=== PATIENT | female | born 1945 | race Caucasian/White ===

== ENCOUNTER 2017-05-06 08:55 | Day surgery (SDC) | payer MEDICARE ==
[~2017-05-06] VITALS: Ht 167.6 cm; Wt 62.1 kg
[~2017-05-06 08:55] MED LIST: ALPHA LIPOIC A300 MG PO; AMOXICILLIN500 MG PO; B COMPLEX1 EACH PO; CIPRO500 MG PO; CITRUCEL479 GM PO; CLOBETASOL PROP15 G1 TOP; FISH OIL OMEGA1 EAC2 PO; FLAGYL500 MG PO; GLUCOSAMINE &1 EAC1 PO; LEVOTHYROXINE50 MCG PO; MAGNESIUM250 M1 PO; MULTIVITAMINS1 EAC7 PO; NAPROXEN500 MG PO; NORCO 5-325 TA1 EACH PO; PROTONIX40 MG PO; RANITIDINE HCL150 MG PO; TURMERIC500 M2 PO; ULTRAM50 MG PO; ZYRTEC10 MG PO
[2017-05-06] MEDS ORDERED: ADVIL200 MG PO (09:19)
[2017-05-06] MEDS ORDERED: EXTRA STRENGTH500 MG PO (09:19)
--- NOTE | 2017-05-11 07:20 | OR ---
[facility] [address] [place], [place] [address] Signed DATE OF OPERATION: 05/06/2017 SURGEON: Bora Cassidy MD PREOPERATIVE DIAGNOSIS: Painful right hip. POSTOPERATIVE DIAGNOSIS: Painful right hip. PROCEDURE: Aspiration/injection to right hip. ANESTHESIA: IV sedation with some local. WHAT WAS DONE: The patient was taken to the operating room. After she was gently sedated, the right groin area was prepped, and draped in a routine sterile fashion. After positioning the fluoroscopy unit over the hip and identifying the hip area, we raised a Xylocaine wheal lateral to the neurovascular bundle. Then under fluoroscopy control, we directed a 19-gauge spinal needle into the hip joint. There was a rather significant pump as it went through the hip capsule. We then attempted to aspirate the hip joint, but there was no fluid. We did irrigate it with a small amount of non-bacteriostatic normal saline, and again recovered only a little bit of fluid. There was nothing unusual in its appearance. We therefore injected the hip with 8 mL of 1% plain Xylocaine and 2 mL of Depo-Medrol. The needle was withdrawn, a Band-Aid applied. She was awakened and taken to the recovery room, where she arrived in stable condition. Counts were correct and antibiotic protocols were followed. Bora Cassidy MD Electronically Signed By: BORA CASSIDY MD 05/11/17 0720 PATIENT NAME: SHYAM ASIF OPERATIVE REPORT DATE OF : 41 PHYSICIAN: BORA CASSIDY MD REPORT #: [id number] REPORT IS CONFIDENTIAL AND NOT TO BE RELEASED WITHOUT AUTHORIZATION [address] [place], [place] [address] Signed WFB/MODL /[id number] Electronically Signed By: BORA CASSIDY MD 05/11/17 0720 PATIENT NAME: SHYAM ASIF OPERATIVE REPORT DATE OF : 41 PHYSICIAN: BORA CASSIDY MD REPORT #: [id number] REPORT IS CONFIDENTIAL AND NOT TO BE RELEASED WITHOUT AUTHORIZATION
== END 2017-05-06 11:55 | disposition home or self-care (01) ==
LOC: OPS 08:55 → DS 08:55 → OPS 11:00
PROVIDERS: Orthopaedic Surgery
PROC: 3E0U33Z Introduction of Anti-inflammatory into Joints, Percutaneous Approach (ICD-10-PCS; 2017-05-06)
PROC: 3E0U3BZ Introduction of Anesthetic Agent into Joints, Percutaneous Approach (ICD-10-PCS; principal; 2017-05-06 11:00)
DX: G89.29 Other chronic pain (principal); M25.551 Pain in right hip; E03.9 Hypothyroidism, unspecified; Z98.1 Arthrodesis status
CPT/HCPCS: 73501; 99156; 99157; J2704; J3301; J7120

== ENCOUNTER 2017-11-15 19:09 | Emergency (ER) | payer MEDICARE ==
[~2017-11-15] VITALS: Ht 167.6 cm; Wt 62.1 kg
[~2017-11-15 19:09] MED LIST changes: +ADVIL200 MG PO; +EXTRA STRENGTH500 MG PO
[2017-11-15] MEDS ORDERED: OXYCODONE HCL5 MG PO (19:33)
[2017-11-15] MEDS ORDERED: ULTRAM50 MG PO (19:34)
[2017-11-15] MEDS ORDERED: MELOXICAM15 MG PO (19:34)
== END 2017-11-15 20:56 | disposition home or self-care (01) ==
LOC: ED 19:09
DX: G89.18 Other acute postprocedural pain (principal); M79.604 Pain in right leg; M79.89 Other specified soft tissue disorders; Z96.641 Presence of right artificial hip joint; Z88.8 Allergy status to other drugs, medicaments and biological substances; Z88.1 Allergy status to other antibiotic agents; Z88.2 Allergy status to sulfonamides; Z79.899 Other long term (current) drug therapy
CPT/HCPCS: 80053; 85025; 93971; 99284

== ENCOUNTER 2019-09-19 07:05 | Day surgery (SDC) | payer MEDICARE ==
[~2019-09-19] VITALS: Ht 167.6 cm; Wt 63.5 kg
[~2019-09-19 07:05] MED LIST changes: +DOCUPRENE100 MG PO; +IBUPROFEN600 MG PO; +LIPITOR20 MG PO; +MELOXICAM15 MG PO; +METAMUCIL FIBE3.4 GM PO; +OXYCODON-ACETA1 EAC2 PO; +OXYCODONE HCL5 MG PO; +PEPCID20 MG PO; +PROBIOTIC1 EAC1 PO; +SAW PALMETTO160 MG PO; +TURMERIC 500 M1 EACH PO; +TYLENOL EXTRA500 MG PO
--- NOTE | 2019-09-19 09:39 | NUR ---
0800) 0 NEEDS ADVISED OF WAIT TIME. 0905) UP TO BATHROOM WITH STANDBY ASSIST
--- NOTE | 2019-09-19 11:05 | NUR ---
09/19/19 1105 [place] 1100 PT ARRIVED TO PACU ON 2L VIA NC, VSS. PT REACTIVE TO VERBAL STIMULI AND PT DENIES PAIN AND NAUSEA, PT EYES REMAIN CLOSED AND EASILY FALLS BACK TO SLEEP.
[2019-09-19] MEDS ORDERED: HYDROMORPHONE HC4 MG PO (11:07)
[2019-09-19] MEDS ORDERED: IBUPROFEN600 MG PO (11:07)
--- NOTE | 2019-09-21 17:13 | PATH ---
[facility] [address] [place], [place] [address] Signed SPECIMEN(S): A LEFT AXILLARY CONTENTS SPECIMEN SOURCE: A. LEFT AXILLARY CONTENTS CLINICAL HISTORY: Left neoplasm of breast regional lymph node staging CA+ N1: metastasis to movable ipsilateral level I, II axillary lymph node(s) / (Hx of sentinel lymph node biopsy) FINAL PATHOLOGIC DIAGNOSIS: Axillary contents, left, dissection: - Nine lymph nodes with no evidence of malignancy. - Fibroadipose tissue with postsurgical site reparative change and chronic inflammation. NAL:cml:C2NR MICROSCOPIC EXAMINATION: Histologic sections of all submitted blocks are examined by light microscopy. These findings, together with the gross examination, support the pathologic diagnosis. GROSS DESCRIPTION: The specimen, labeled " EC, A" and "left axillary contents"," is received in formalin and consists of a 9 x 7 x 5 cm yellow lobulated portion of adipose tissue. The external surface is marked with blue ink. The cut surfaces demonstrate a 4.8 x 3.4 x 2.2 cm junior to yellow centrally cavitary and fibrous area. The cut surfaces also demonstrate multiple rubbery whitfield lymph nodes that measure up to 1.8 cm. Beef Cattle Farmer sections are submitted as follows: A1 six nodes intact A2 one node bisected A3 one node bisected A4 one node bisected A5-A9 fibrous and cavitary area. There is no specimen collection time. Therefore a cold ischemic time cannot be determined. A total fixation time also cannot be determined. SS (under the direct supervision of a pathologist) The Gross Description was prepared using a voice recognition system. The report was reviewed for accuracy; however, sound-alike word errors, addition PATIENT NAME: SHYAM ASIF PATHOLOGY DATE OF : 41 REPORT #: [id number] PHYSICIAN: KELLY HARRELL PCP: ANAIS PACHECO DO REPORT IS CONFIDENTIAL AND NOT TO BE RELEASED WITHOUT AUTHORIZATION [facility] [address] [place] [address] Signed and/or deletions may occur. If there is any question about this report, please contact Client Services. PERFORMING LABORATORY: The technical component was performed [place] [address] (Inner Layer Scrubber Tender: Cara Hester MD; CLIA# [id number]). Professional interpretation was performed by [facility], [address] [place] [address] (CLIA# [id number]). Diagnostician: Ruth Horne MD Pathologist Electronically Signed 09/21/2019 Copies: ~ PATIENT NAME: SHYAM ASIF PATHOLOGY DATE OF : 41 REPORT #: [id number] PHYSICIAN: KELLY PATHOLOGY PCP: ANAIS PACHECO DO REPORT IS CONFIDENTIAL AND NOT TO BE RELEASED WITHOUT AUTHORIZATION
[2019-09-22] MEDS ORDERED: HYDROXYZINE PAM25 MG PO (14:05)
[2019-09-22] MEDS ORDERED: AMOXICILLIN500 MG PO (14:05)
[2019-09-22] MEDS ORDERED: DICLO GEL1 EACH (14:06)
[2019-09-22] MEDS ORDERED: CETIRIZINE HCL10 MG PO (14:06)
[2019-09-22] MEDS ORDERED: VENTOLIN HFA18 GM (14:07)
[2019-09-22] MEDS ORDERED: MELATONIN3 M2 PO (14:12)
--- NOTE | 2019-09-22 15:50 | OR ---
[facility] [address] [place], [place] [address] Signed DATE OF OPERATION: 09/19/2019 SURGEON: Elayne Aly MD PREOPERATIVE DIAGNOSIS: Left infiltrating ductal breast carcinoma with 1/2 positive sentinel lymph nodes (macrometastasis). POSTOPERATIVE DIAGNOSIS: Left infiltrating ductal breast carcinoma with 1/2 positive sentinel lymph nodes (macrometastasis). PROCEDURE PERFORMED: Left axillary dissection. ANESTHESIA: General LMA; Anita Buck CRNA. INDICATION: This 73-year-old white woman is a patient of Dr. Pacheco and Dr. Faulkner of [place]. She has undergone left lumpectomy (partial mastectomy) with oncoplastic closure as well as sentinel lymph node biopsies x2. Frozen pathology at that time showed no evidence of metastatic disease. Final pathology, however, did show negative margins on the tumor, but a macrometastasis in one of the two sentinel lymph nodes. After full consideration of the pros and cons of complete axillary dissection she elects to proceed with it. She understands as does her the risks of bleeding, infection, arm edema, neurovascular injury, and failure to cure her underlying cancer. They understood this and they wished to proceed. FINDINGS: Inflamed tissue from prior dissection was noted. The axillary contents were well developed an excision extended from the superior aspect of the axilla and region of the axillary vein preserving the long thoracic and thoracodorsal neurovascular bundles. A generous axillary packet of lymph tissue was excised as well as inflammatory tissue in the region of prior biopsy. A small seroma was noted in the previously dissected tissue. DESCRIPTION OF PROCEDURE: The patient was brought to the operating room, given a general anesthetic by LMA type. Electronically Signed By: ELAYNE ALY MD 09/22/19 1550 PATIENT NAME: SHYAM ASIF OPERATIVE REPORT DATE OF : 41 REPORT #: [id number] PHYSICIAN: ELAYNE ALY MD PCP: ANAIS PACHECO DO REPORT IS CONFIDENTIAL AND NOT TO BE RELEASED WITHOUT AUTHORIZATION [facility] [address] [place], [place] [address] Signed Sequential compression device stockings used. Heparin subcutaneously administered. The arm was abducted and preparation undertaken of the chest, arm, and so forth. Steri-Strips were removed from her prior incision. The previous incision was extended laterally and using electrocautery dissection initially, the thick and inflamed soft tissue was freed from the overlying subcutaneous tissue. Dissection was undertaken cephalad. The axillary vein was identified as was the long thoracic and thoracodorsal neurovascular bundles. The fatty tissue of the axilla was dissected inferiorly from that point using clips as necessary. Nodes in the interpectoral plane were additionally excised several clips were applied to that area as needed. Completion was undertaken inferiorly, preserving the long thoracic, thoracodorsal and neurovascular bundles. The wound was closed with interrupted 2-0 Vicryl after irrigation was undertaken assuring hemostasis. Prior to closure, a stab incision was made and a 7 mm flat Yobany drain was placed in the axillary space. The skin was closed with running subcuticular 3-0 Vicryl. Steri-Strips were applied as was a silver sponge dressing. The drain was secured to the skin with nylon suture and attached to bulb suction, which was holding suction well. An op site was applied to the drain as well. BLOOD LOSS: 50 mL or less. MD VALDEMAR Munson/VIRAL /[id number] cc: DO Jamie Weller MD Dr. Cho Bryony Jo McCollaugh, DO Copies: ANAIS PACHECO ROBERT C MD Electronically Signed By: ELAYNE ALY MD 09/22/19 1550 PATIENT NAME: SHYAM ASIF OPERATIVE REPORT DATE OF : 41 REPORT #: [id number] PHYSICIAN: ELAYNE ALY MD PCP: ANAIS PACHECO DO REPORT IS CONFIDENTIAL AND NOT TO BE RELEASED WITHOUT AUTHORIZATION [facility] [address] [place] [id number] Signed AMI FAULKNER Electronically Signed By: ELAYNE ALY MD 09/22/19 1550 PATIENT NAME: SHYAM ASIF OPERATIVE REPORT DATE OF : 41 REPORT #: [id number] PHYSICIAN: ELAYNE ALY MD PCP: ANAIS PACHECO DO REPORT IS CONFIDENTIAL AND NOT TO BE RELEASED WITHOUT AUTHORIZATION
== END 2019-09-19 13:20 | disposition home or self-care (01) ==
LOC: DS 07:05
PROVIDERS: Surgery
PROC: 07B60ZZ Excision of Left Axillary Lymphatic, Open Approach (ICD-10-PCS; principal; 2019-09-19 08:15)
DX: I88.1 Chronic lymphadenitis, except mesenteric (principal); C50.912 Malignant neoplasm of unspecified site of left female breast; E03.9 Hypothyroidism, unspecified; K21.9 Gastro-esophageal reflux disease without esophagitis; Z88.1 Allergy status to other antibiotic agents; Z88.2 Allergy status to sulfonamides; Z88.8 Allergy status to other drugs, medicaments and biological substances; Z79.899 Other long term (current) drug therapy
CPT/HCPCS: 00404; J0690; J1100; J1644; J1790; J2001; J2704; J3010; J3475; J7121

== ENCOUNTER 2019-09-29 05:49 | Day surgery (SDC) | payer MEDICARE ==
[~2019-09-29] VITALS: Ht 167.6 cm; Wt 64.9 kg
[~2019-09-29 05:49] MED LIST changes: +CETIRIZINE HCL10 MG PO; +DICLO GEL1 EACH; +HYDROMORPHONE HC4 MG PO; +HYDROXYZINE PAM25 MG PO; +MELATONIN3 M2 PO; +VENTOLIN HFA18 GM
--- NOTE | 2019-09-29 08:19 | NUR ---
09/29/19 0819 [place] 0854 PT ARRIVED TO PACU ON 6L VIA MASK, PT WAKES EASILY TO VERBAL STIMULI, PT DENIES PAIN AND FALLS EASILY BACK TO SLEEP. RESP EVEN AND UNLABORED.
--- NOTE | 2019-09-29 08:29 | NUR ---
PT ALERT, ORIENTED AND SEEMS ALITTLE ANXIOUS TODAY. PT ADMITTED SHE IS CONCERNED FOR HER -HE HAS BRONCHITIS. THE STUART VIRUS HAS HER KEEPING A CLOSE EYE ON HER ED. PT REQUESTED PRAYER, THANKED ME FOR VISIT. DR ALY IN
--- NOTE | 2019-09-29 09:13 | NUR ---
0874 PATIENT TO FLOOR FROM RECOVERY. BEDSIDE REPORT FROM [facility]. PATIENT RATING PAIN 7/10 ON PAIN SCALE, ONLY WANTS TYLENOL. ADMINISTERED PER SEP. PROVIDED APPLESAUCE AND CRACKERS. TOLERATING WELL. UP TO BATHROOM, VOIDING WELL. DRESSING TO LEFT CHEST C/D/I. NO OTHER NEEDS AT THIS TIME. CALL LIGHT WITHIN REACH.
--- NOTE | 2019-09-29 09:23 | NUR ---
PROVIDED PATIENT WITH ZUNILDA SANCHEZ. PAIN IMPROVING, RATES 5/10 ON PAIN SCALE. NO N/V. CALL LIGHT WITHIN REACH.
--- NOTE | 2019-09-29 10:00 | NUR ---
PROVIDED PATIENT WITH DISCHARGE EDUCATION, ANSWERED QUESTIONS AND CONCERNS. PATIENT DRESSING INTACT, DISCUSSED CARE AT HOME. PATIENT VERBALIZED UNDERSTANDING. PATIENT CONTINUES TO REFUSE NEED FOR SCRIPT, VERBALIZES PLAN TO CONTROL PAIN WITH TYLENOL AND IBUPROFEN. PROVIDED WHEELCHAIR RIDE TO FRONT, ASSISTED INTO PRIVATE CAR.
--- NOTE | 2019-09-29 11:25 | OR ---
[facility] [address] [place], [place] [address] Signed DATE OF OPERATION: 09/29/2019 SURGEON: Elayne Aly MD PREOPERATIVE DIAGNOSES: Left infiltrating ductal breast carcinoma with one macroscopic sentinel lymph node metastasis. POSTOPERATIVE DIAGNOSES: Left infiltrating ductal breast carcinoma with one macroscopic sentinel lymph node metastasis. PROCEDURES PERFORMED: 1. Left subclavian Bard port catheter placement. 2. Surgeon-directed fluoroscopy. ANESTHESIA: General LMA; Elayne Hayes CRNA, and local 2 mL of 1% lidocaine. INDICATION: A 73-year-old white woman, who is a patient of Dr. Dave Pacheco. She was found to have a left upper outer quadrant infiltrating breast carcinoma, with one 2 mm focus in a sentinel lymph node biopsy. Completion axillary dissection was undertaken showing no additional lymph node involvement. She has a drain remains in the left axilla which is now less than 25 mL a day. She has conferred with Dr. Atkinson and Dr. Pierson anticipating radiation therapy but chemotherapy as well. A Port-A-Cath has been recommended by Dr. Pierson and she is here to undergo placement of the device. The risks of bleeding, infection, pneumothorax, and other unforeseen complications related to placement of the device have been reviewed with her. We would anticipate a right-sided placement if possible, if not a left subclavian approach. FINDINGS: Initial passage to the right subclavian area showed easy access to the right subclavian vein with dark nonpulsatile blood. A flexible J-wire was only able to be passed partially. Fluoroscopic control showed that the wire preferentially extended to the right jugular system. An additional attempt that was unsuccessful and therefore a left-sided approach was undertaken. This went without problem. The catheter was placed with the tip in the superior vena cava and good function of the catheter without any Electronically Signed By: ELAYNE ALY MD 09/29/19 1125 PATIENT NAME: SHYAM ASIF OPERATIVE REPORT DATE OF : 41 REPORT #: [id number] PHYSICIAN: ELAYNE ALY MD PCP: DAVE PACHECO DO REPORT IS CONFIDENTIAL AND NOT TO BE RELEASED WITHOUT AUTHORIZATION [facility] [address] [place], [place] [address] Signed kind of kinking or other problem with the catheter itself. DESCRIPTION OF PROCEDURE: The patient was brought to the operating room, and given a general anesthetic per patient preference with a LMA device. Her face was turned towards the left. The upper chest was prepared with a chlorhexidine solution and draped sterilely. Preoperative antibiotic Ancef was given. Sequential compression device stockings used. Her neck is relatively thin, but somewhat distorted and its anatomy and a jugular approach was deemed inadvisable at this time. On that basis, a right subclavian approach was undertaken. Using the Seldinger technique on 1st pass, the right subclavian vein was accessed showing dark nonpulsatile blood. A flexible J-wire was passed down the wire, which extended a bit, but then became somewhat resistant. Fluoroscopy was used to ascertain the position of the wire, which was extending to the right internal jugular vein. Under fluoroscopic control withdrawal of the wire with attempts to manipulated into the superior vena cava were unsuccessful. The head position was changed to be neutral and still no successful passage of the wire. Another attempt was made with separate access again showing dark nonpulsatile blood and passage of the flexible J-wire, but this was again afforded by preferential extension of the wire to the right internal jugular vein. On the basis, the wire was removed. The left-sided approach was then deemed necessary. Through the left subclavian area again with Seldinger technique the left subclavian vein was easily accessed showing dark nonpulsatile blood. A flexible J-wire was passed down that site without problem. Fluoroscopy confirmed the wire to be in the right heart system. A transverse incision was made as high as possible on the left chest, so to be out of the field of radiation in the future. A pocket was created. A port device (Bard port device) was partially secured to the pectoralis fascia. The exit site of the wire was incised with an #11 blade and a dilator and subsequently dilator and peel-away sheath introducer passed over the wire. The dilator and the wire were removed showing vigorous dark nonpulsatile retrograde bleeding. A previously inspected Groshong type Bard port catheter was passed down the sheath gently stabilized and the peel-away sheath introducer removed without problem. The patient was then placed in a neutral position from a mild Trendelenburg position and fluoroscopy undertaken once again. The tip of the catheter was then withdrawn to the superior vena cava. The catheter was then drawn subcutaneously with the enclosed tunneling device, trimmed Electronically Signed By: ELAYNE ALY MD 09/29/19 1125 PATIENT NAME: SHYAM ASIF OPERATIVE REPORT DATE OF : 41 REPORT #: [id number] PHYSICIAN: ELAYNE ALY MD PCP: DAVE PACHECO DO REPORT IS CONFIDENTIAL AND NOT TO BE RELEASED WITHOUT AUTHORIZATION [address] [address] Signed to the appropriate length and secured to the port device per manufacture's and secured with the collar device. The port was secured to the pectoralis fascia with the 2-0 Vicryl suture. Aspiration with an angled Vincent needle and heparinized saline showed easy withdrawal of blood and easy infusion. Fluoroscopy was once again undertaken. After securing the port more fully to the pectoralis fascia, showing no sign of kink or contour abnormality of the catheter. The port site was more fully closed with interrupted 2-0 Vicryl and skin closed in running subcuticular 3-0 Vicryl as was the puncture site in the infraclavicular space itself. Fluoroscopy was once again undertaken confirming position of the tip of the catheter to be appropriate and without sign of kinking or other problem to the remaining Bard port catheter assembly. Steri-Strips were applied as was a silver sponge dressing with adhesive. The patient was ultimately extubated and transferred to recovery room in good condition and suffered no complication. Sponge, needle, and instruments counts reported as correct x3. A postprocedure chest x-ray in recovery room is pending. MD VALDEMAR Munson/VIRAL /[id number] cc: MD Dragan Huynh MD, PH.D. Dave Pacheco DO Copies: ANGLE PIERSON MD, JUNO KARGAR, ARIAN DO ~ Electronically Signed By: ELAYNE ALY MD 09/29/19 1125 PATIENT NAME: SHYAM ASIF OPERATIVE REPORT DATE OF : 41 REPORT #: [id number] PHYSICIAN: ELAYNE ALY MD PCP: DAVE PACHECO DO REPORT IS CONFIDENTIAL AND NOT TO BE RELEASED WITHOUT AUTHORIZATION
== END 2019-09-29 10:00 | disposition home or self-care (01) ==
LOC: DS 05:49 → OPS 05:49 → DS 08:15 → OPS 08:15
PROVIDERS: Surgery
PROC: 05H633Z Insertion of Infusion Device into Left Subclavian Vein, Percutaneous Approach (ICD-10-PCS; 2019-09-29)
PROC: B517YZA Fluoroscopy of Left Subclavian Vein using Other Contrast, Guidance (ICD-10-PCS; 2019-09-29)
PROC: 0JH60XZ Insertion of Tunneled Vascular Access Device into Chest Subcutaneous Tissue and Fascia, Open Approach (ICD-10-PCS; principal; 2019-09-29 06:45)
DX: C50.912 Malignant neoplasm of unspecified site of left female breast (principal); C77.3 Secondary and unspecified malignant neoplasm of axilla and upper limb lymph nodes; K21.0 Gastro-esophageal reflux disease with esophagitis; E03.9 Hypothyroidism, unspecified; K59.00 Constipation, unspecified; M54.9 Dorsalgia, unspecified; G89.29 Other chronic pain; Z88.0 Allergy status to penicillin; Z88.1 Allergy status to other antibiotic agents; Z88.6 Allergy status to analgesic agent; Z88.2 Allergy status to sulfonamides; Z79.899 Other long term (current) drug therapy
CPT/HCPCS: 71045; 77001; C1788; J0690; J1100; J1644; J1885; J2250; J2405; J2704; J2765; J3010; J7121

== ENCOUNTER 2020-11-07 02:58 | Emergency (ER) | payer MEDICARE ==
[~2020-11-07] VITALS: Ht 167.6 cm; Wt 58.0 kg
[~2020-11-07 02:58] MED LIST changes: +CLOBETASOL PROP15 GM TOP; +CYCLOPHOSPHAMID PO; +CYCLOPHOSPHAMID50 M1 PO; +MIRALAX17 GM PO; +OMEPRAZOLE20 MG PO; +ZOFRAN8 MG PO
[2020-11-07] MEDS ORDERED: METHOCARBAMOL750 MG PO (06:05)
== END 2020-11-07 06:10 | disposition home or self-care (01) ==
LOC: ED 02:58
DX: N83.201 Unspecified ovarian cyst, right side (principal); K76.89 Other specified diseases of liver; Z85.3 Personal history of malignant neoplasm of breast; M54.9 Dorsalgia, unspecified; Z88.1 Allergy status to other antibiotic agents; Z88.8 Allergy status to other drugs, medicaments and biological substances; Z88.2 Allergy status to sulfonamides; Z79.899 Other long term (current) drug therapy
CPT/HCPCS: 74176; 80053; 81001; 85025; 96374; 99284-25; J1885

== ENCOUNTER 2021-10-29 18:14 | Emergency (ER) | payer MEDICARE ==
[~2021-10-29] VITALS: Ht 167.6 cm; Wt 61.2 kg
[~2021-10-29 18:14] MED LIST changes: +METHOCARBAMOL750 MG PO
[2021-10-29] MEDS ORDERED: FAMOTIDINE20 MG PO (18:45)
[2021-10-29] MEDS ORDERED: DULOXETINE HCL20 MG PO (18:45)
--- NOTE | 2021-10-31 07:18 | EKG ---
[facility] [address] [facility] [place] [address] Signed Sinus rhythm with frequent premature ventricular complexes in a pattern of bigeminy Otherwise normal ECG When compared with ECG of 23-AUG-2019 16:41, premature ventricular complexes are now present Confirmed by LANA RICKS MD ([id number]) on 10/31/2021 7:17:54 AM Electronically Signed By: LANA RICKS MD 10/31/21 0718 PATIENT NAME: SHYAM ASIF Electrocardiogram DATE OF : 41 PHYSICIAN: LANA RICKS MD REPORT #: [id number] REPORT IS CONFIDENTIAL AND NOT TO BE RELEASED WITHOUT AUTHORIZATION
== END 2021-10-29 20:10 | disposition home or self-care (01) ==
LOC: ED 18:14
DX: R00.1 Bradycardia, unspecified (principal); R00.8 Other abnormalities of heart beat; Z85.3 Personal history of malignant neoplasm of breast; Z88.1 Allergy status to other antibiotic agents; Z88.8 Allergy status to other drugs, medicaments and biological substances; Z79.899 Other long term (current) drug therapy
CPT/HCPCS: 36415; 71045; 80053; 83735; 83880; 84443; 84484; 85025; 85610; 85730; 93005; 93010; 99284-25; J7030

== ENCOUNTER 2021-11-01 19:23 | Emergency (ER) | payer MEDICARE ==
[~2021-11-01] VITALS: Ht 167.6 cm; Wt 61.2 kg
[~2021-11-01 19:23] MED LIST changes: +DULOXETINE HCL20 MG PO; +FAMOTIDINE20 MG PO
--- OUTSIDE RECORDS SUMMARY | 2021-11-01 19:30 | XMS ---
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 Wilda has no Care Guidelines for this patient. [facility] (12 MO.) [facility] [place] [facility] NOTE: Visits indicate total known visits. ED/C VISIT TRACKING (12 MO.) 11/01/2021 19:24 [facility] TYPE: Emergency COMPLAINT: - LOW PULSE RATE 10/29/2021 18:15 [facility] [place] TYPE: Emergency COMPLAINT: - LOW HEART RATE DIAGNOSES: - Personal history of malignant neoplasm of breast - Bradycardia, unspecified - Allergy status to other antibiotic agents - Other abnormalities of heart beat - Other long chain quiller tender (current) drug therapy - Dizziness and giddiness - Allergy status to other drugs, medicaments and biological substances 11/07/2020 02:59 [facility] [place] TYPE: Emergency COMPLAINT: - FLANK PAIN DIAGNOSES: - Allergy status to other antibiotic agents - Allergy status to sulfonamides - Personal history of malignant neoplasm of breast - Unspecified ovarian cyst, right side - Unspecified ovarian cyst, right side - Unspecified abdominal pain - Dorsalgia, unspecified - Other specified diseases of liver - Allergy status to other drugs, medicaments and biological substances - Other correction (current) drug therapy INPATIENT VISIT TRACKING (12 MO.) No inpatient visits to display in this time frame [email or web address]
--- NOTE | 2021-11-03 08:29 | EKG ---
[facility] [address] [facility] [place], [place] [address] Signed Sinus rhythm with frequent premature ventricular complexes Otherwise normal ECG When compared with ECG of 29-OCT-2021 18:31, No significant change was found Confirmed by LANA RICKS MD ([id number]) on 11/03/2021 8:29:13 AM Electronically Signed By: LANA RICKS MD 11/03/21 0829 PATIENT NAME: WAGNER ASIFAINE Electrocardiogram DATE OF : 41 PHYSICIAN: LANA RICKS MD REPORT #: [id number] REPORT IS CONFIDENTIAL AND NOT TO BE RELEASED WITHOUT AUTHORIZATION
== END 2021-11-01 21:10 | disposition home or self-care (01) ==
LOC: ED 19:23
DX: R00.1 Bradycardia, unspecified (principal); Z85.3 Personal history of malignant neoplasm of breast; Z88.1 Allergy status to other antibiotic agents; Z88.8 Allergy status to other drugs, medicaments and biological substances; Z88.2 Allergy status to sulfonamides; Z79.899 Other long term (current) drug therapy
CPT/HCPCS: 36415; 80053; 83735; 84100; 93005; 93010; 99284-25

== ENCOUNTER 2022-07-23 11:57 | Day surgery (SDC) | payer MEDICARE ==
[~2022-07-23] VITALS: Ht 167.6 cm; Wt 61.5 kg
[~2022-07-23 11:57] MED LIST changes: +FLECAINIDE ACET50 MG PO; +METOPROLOL SUCC25 MG PO; +ONDANSETRON ODT8 MG PO
--- NOTE | 2022-07-23 13:28 | NUR ---
07/23/22 1328 Ellie [place] 1323 PATIENT ARRIVES TO PACU AWAKE BUT DROWSY. DENIES PAIN OR NAUSEA. RESTING WITH EYES CLOSED WHEN NOT STIMULATED. RESP EVEN AND UNLABORED, NC ON AT 2 LITERS, TURNED OFF ON ARRIVAL.
--- NOTE | 2022-07-25 11:03 | OR ---
[facility] [address] [place], [place] [address] Signed DATE OF OPERATION: 07/23/2022 SURGEON: Elayne Aly MD PREOPERATIVE DIAGNOSIS: Colon screening. POSTOPERATIVE DIAGNOSIS: Normal colon to cecum. PROCEDURE: Total colonoscopy to cecum. ANESTHESIA: Intravenous sedation; fentanyl 125 mcg, Versed 3 mg total and preoperative antibiotic Ancef 2 g IV. INDICATION: This 76-year-old white woman is a patient of Dr. Pacheco and last underwent colonoscopy in 2005. She was treated for an anal fissure in December of 2021, which resolved with conservative management. She last underwent colonoscopy in 2005. She has no family history of colon cancer and no current symptoms of bleeding, diarrhea or constipation. She understands the risk of bleeding, infection, and perforation related to colonoscopy and wished to proceed. FINDINGS: The prep was excellent. Complete colonoscopy was undertaken to the cecum without question. She had no evidence of polyps, diverticular formation, colitis, cancer, or other abnormality. DESCRIPTION OF PROCEDURE: The patient was brought to the endoscopy suite and placed in the lateral decubitus position, given intravenous sedation to the point of slurred speech and nystagmus. Digital rectal examination was normal. An Olympus video colonoscope was passed in the rectum and manipulated throughout the colon ultimately intubating the cecum itself. The ileocecal valve and appendiceal orifice were normal. Scope was withdrawn from that point and examination throughout showed no sign of polyps, diverticular formation, colitis, or cancer. Retroflexed view of the rectum was normal. The scope was removed and the patient was taken to the Electronically Signed By: ELAYNE ALY MD 07/25/22 1103 PATIENT NAME: SHYAM ASIF OPERATIVE REPORT DATE OF : 41 REPORT #: [id number] PHYSICIAN: ELAYNE ALY MD PCP: DAVE PACHECO DO REPORT IS CONFIDENTIAL AND NOT TO BE RELEASED WITHOUT AUTHORIZATION [facility] [address] [place], [place] [address] Signed recovery room in good condition. CONCLUDING DIAGNOSIS: Normal colon to cecum. PLAN: Recommend continued high-fiber diet based on prior history of fissure. As regards repeat colonoscopy, she does not have strict reason to repeat any time soon as she has no family history of polyps or other problem, but if clinically appropriate, repeat colonoscopy in 10 years would be reasonable. MD VALDEMAR Munson/MODL /[id number] cc: Dave Pacheco DO Copies: DAVE PACHECO DO ~ Electronically Signed By: ELAYNE ALY MD 07/25/22 1103 PATIENT NAME: SHYAM ASIF OPERATIVE REPORT DATE OF : 43 REPORT #: [id number] PHYSICIAN: ELAYNE ALY MD PCP: DAVE PACHECO DO REPORT IS CONFIDENTIAL AND NOT TO BE RELEASED WITHOUT AUTHORIZATION
== END 2022-07-23 13:55 | disposition home or self-care (01) ==
LOC: OPS 11:57 → DS 11:58 → OPS 13:00
PROVIDERS: ATTEND Surgery
PROC: 0DJD8ZZ Inspection of Lower Intestinal Tract, Via Natural or Artificial Opening Endoscopic (ICD-10-PCS; principal; 2022-07-23 13:00)
DX: Z12.11 Encounter for screening for malignant neoplasm of colon (principal); K60.2 Anal fissure, unspecified; K21.9 Gastro-esophageal reflux disease without esophagitis; Z88.1 Allergy status to other antibiotic agents; Z88.2 Allergy status to sulfonamides; Z88.8 Allergy status to other drugs, medicaments and biological substances; Z79.899 Other long term (current) drug therapy
CPT/HCPCS: G0121; 99153; G0500; J0690; J2250; J3010; J7121